=== PATIENT | male | born 1975 | race Two or more races ===

== ENCOUNTER 2021-09-30 09:45 | Emergency (ER) | payer OTHER ==
[~2021-09-30] VITALS: Ht 180.3 cm; Wt 106.6 kg
[2021-09-30] MEDS ORDERED: ZESTRIL10 M1 (09:58)
[2021-09-30] MEDS ORDERED: DICLOFENAC POTA50 MG PO (11:04)
[2021-09-30] MEDS ORDERED: CIPRO500 MG PO (11:04)
== END 2021-09-30 11:19 | disposition home or self-care (01) ==
LOC: ER 09:45
DX: S91.342A Puncture wound with foreign body, left foot, initial encounter (principal); W31.89XA Contact with other specified machinery, initial encounter; Y93.89 Activity, other specified; Y92.89 Other specified places as the place of occurrence of the external cause; Y99.8 Other external cause status

== ENCOUNTER 2021-10-15 12:00 | Outpatient (CLI) | payer OTHER ==
[~2021-10-15 12:00] MED LIST: CIPRO500 MG PO; DICLOFENAC POTA50 MG PO; ZESTRIL10 M1
== END 2021-10-15 12:30 | disposition home or self-care (01) ==
LOC: PPH VACUNA 12:00
PROVIDERS: ATTEND Emergency Medicine Pediatric Emergency Medicine
DX: Z23 Encounter for immunization (principal)